=== PATIENT | female | born 2000 | race African-American/Black ===

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

== ENCOUNTER 2022-07-24 11:19 | Emergency (ER) | payer MEDICAID, OTHER ==
[2022-07-24] MEDS ORDERED: Metoclopramide HCl 10 MG TAB ONE (13:13)
[2022-07-24] MEDS ORDERED: Ketorolac Tromethamine 30 MG/ML VIAL ONE (13:13)
[2022-07-24 13:58] LABS: SARS-CoV-2 NAA Rapid Test Not Detected (NotDetected)
== END 2022-07-24 15:14 | disposition home or self-care (01) ==
LOC: ERS 11:19
DX: R51.9 Headache, unspecified (principal); Z20.822 Contact with and (suspected) exposure to COVID-19
CPT/HCPCS: 96372; 99283; J1885

== ENCOUNTER 2022-11-30 19:05 | Emergency (ER) | payer BC, OTHER ==
[2022-11-30] MEDS ORDERED: Ondansetron ODT 4 MG TAB ONE (19:15)
== END 2022-11-30 19:27 | disposition home or self-care (01) ==
LOC: ERS 19:05
DX: R11.0 Nausea (principal)
CPT/HCPCS: 99283; Q0162

== ENCOUNTER 2022-12-06 22:53 | Emergency (ER) | payer OTHER ==
[2022-12-06] MEDS ORDERED: Acetaminophen 500 MG TAB ONE (23:22)
[2022-12-06] MEDS ORDERED: Metoclopramide HCl 10 MG/2 ML VIAL ONE (23:22)
[2022-12-06] MEDS ORDERED: Ketorolac Tromethamine 30 MG/ML VIAL ONE (23:22)
[2022-12-06] MEDS ORDERED: diphenhydrAMINE 50 MG/ML VIAL ONE (23:22)
== END 2022-12-07 00:26 | disposition home or self-care (01) ==
LOC: ERS 22:53
DX: R51.9 Headache, unspecified (principal)
CPT/HCPCS: 96365; 96375; J1200; J1885; J2765

== ENCOUNTER 2023-04-14 14:20 | Emergency (ER) | payer BC, OTHER, SELFPAY ==
[2023-04-14] MEDS ORDERED: Ondansetron ODT 4 MG TAB ONE (15:44)
[2023-04-14 16:43] LABS: SARS-CoV-2 NAA Rapid Test DETECTED (NotDetected)
== END 2023-04-14 16:31 | disposition home or self-care (01) ==
LOC: ERS 14:20
DX: U07.1 COVID-19 (principal)
CPT/HCPCS: 87081; 87430; 99284; Q0162

== ENCOUNTER 2024-06-01 20:08 | Emergency (ER) | payer SELFPAY | END 2024-06-01 20:45 | disposition home or self-care (01) | LOC: ERS 20:08 | DX: S30.1XXA Contusion of abdominal wall, initial encounter (principal); W31.9XXA Contact with unspecified machinery, initial encounter; Y93.89 Activity, other specified; Y92.242 Post office as the place of occurrence of the external cause; Y99.0 Civilian activity done for income or pay | CPT/HCPCS: 99283 ==